=== PATIENT | male | born 1980 | race Caucasian/White ===

== ENCOUNTER → 2019-11-05 10:00 | Outpatient (BNVA) | payer MEDICARE, MEDICAID, SELFPAY | PROVIDERS: PCP Otolaryngology; Visit Provider Otolaryngology | DX: H93.92 Unspecified disorder of left ear (principal); H90.5 Unspecified sensorineural hearing loss; H71.92 Unspecified cholesteatoma, left ear; F17.220 Nicotine dependence, chewing tobacco, uncomplicated | CPT/HCPCS: 99024; 99214 ==

== ENCOUNTER → 2019-12-04 09:13 | Outpatient (BNVA) | payer MEDICARE, MEDICAID, SELFPAY | PROVIDERS: Visit Provider Otolaryngology | DX: H71.22 Cholesteatoma of mastoid, left ear (principal); R09.81 Nasal congestion; F17.220 Nicotine dependence, chewing tobacco, uncomplicated; Z90.89 Acquired absence of other organs | CPT/HCPCS: 17250; 99024; 99213 ==

== ENCOUNTER → 2019-12-10 10:05 | Outpatient (BNVA) | payer MEDICARE, MEDICAID, SELFPAY | PROVIDERS: Visit Provider Otolaryngology | DX: J01.90 Acute sinusitis, unspecified (principal); B96.89 Other specified bacterial agents as the cause of diseases classified elsewhere; R09.81 Nasal congestion; H71.92 Unspecified cholesteatoma, left ear; F17.220 Nicotine dependence, chewing tobacco, uncomplicated | CPT/HCPCS: 99024; 99214 ==

== ENCOUNTER 2020-05-11 07:50 | Day surgery (SDC) | payer MEDICARE, MEDICAID, SELFPAY ==
[2020-05-03 10:46] LABS: Basophils % 0.6 %; Eosinophils # 0.1 10^3/uL (0.0-0.8); Eosinophils % 1.5 %; Hematocrit 41.2 % (42.0-52.0); Hemoglobin 14.1 g/dL (11.7-16.6); Lymphocytes # 1.7 10^3/uL (0.8-4.8); Lymphocytes % 25.7 %; Mean Corpuscular HGB Conc 34.2 g/dL (30.0-36.0); Mean Corpuscular Hemoglobin 31.4 pg (28.0-34.0); Mean Corpuscular Volume 91.8 fL (80-94); Mean Platelet Volume 10.7 fL (7.4-10.4); Monocytes # 0.7 10^3/uL (0.2-0.9); Neutrophils % 61.9 %; Nucleated Red Blood Cells % 0 %; Platelet Count 177 10^3/cmm (130-400); Red Blood Count 4.49 10^6/uL (4.1-5.3); Red Cell Distribution Width 12.6 % (12.1-15.1); White Blood Count 6.5 10^3/uL (4.0-10.0)
[2020-05-03 11:16] LABS: Anion Gap 13.7 (5-19); Blood Urea Nitrogen 15 mg/dL (6-20); Carbon Dioxide 26 mmol/L (22-29); Chloride 104 mmol/L (98-107); Glucose 108 mg/dL (65-115); Osmolality Calculated 287 mOsm/kg (285-295); Potassium 3.7 mmol/L (3.5-5.1); Sodium 140 mmol/L (136-145)
--- NOTE | 2020-05-03 13:52 | ECG_ITS ---
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 Measurements Intervals [place] Rate: 58 P: 69 NC: 159 QRS: 91 QRSD: 93 T: 60 QT: 410 QTc: 403 Interpretive Statements SINUS BRADYCARDIA BORDERLINE RIGHT AXIS DEVIATION [QRS AXIS > 90] INCOMPLETE RIGHT BUNDLE BRANCH BLOCK [90+ ms QRS DURATION, TERMINAL R IN V1/V2, 40+ ms S IN I/aVL/V4/V5/V6] No previous ECG available for comparison Electronically Signed On 05-03-2020 21:45:48 CDT by Carmen Fernandez M.D. [email or web address]
[2020-05-10 11:06] VITALS: BMI 22.0
[2020-05-11] VITALS (7 sets, daily range): BP systolic 98–141; BP diastolic 60–101; PULSE 55–102; RESP 13–18; TEMP 36.2–36.6; O2SAT 98–100
[2020-05-11] MEDS: sodium chloride 0.9% 1,000 ML 30 ML IV (08:24)
--- NOTE | 2020-05-11 10:04 | ANES.PREANE2 ---
Pre-Anesthetic Assessment Pre-Anesthetic Assessment: Height/Weight: Height 1.85 m Weight 75.75 kg Temp Pulse Resp BP Pulse Ox 97.4 F L 55 L 18 140/100 100 05/11/20 08:10 05/11/20 08:10 05/11/20 08:10 05/11/20 08:10 05/11/20 08:10 Proposed Procedure: Operation Date: 05/11/20 08:55 Proposed Procedures p Baha Implants(Left) - Aquilino Hennessy MD Was Beta Lizzy taken within 24 hours: N/A Last intake: Intake Last Liquid Date 05/10/20 Last Liquid Time 19:30 Last Solid Date 05/10/20 Last Solid Time 19:30 Social: Social History: No alcohol and No tobacco Exam: Pre-Anes Outpt Exam: alert, oriented x 3, clear to auscultation bilaterally and regular rate & rhythm Airway: Submandibular: WNL Cervical ROM: WNL MP: 2 Dentition: Full History/ROS: No significant complaints Pulmonary: Pulmonary: None reported CV/HEM: CV/HEM: HTN : : None reported Hepatic: Hepatic: None reported GI: GI: None reported Metabolic: Metabolic: None reported Musc/skel: Musc/skel: None reported Neuropsych: Comments: Sensorineural Hearing Loss Anesthetic Plan: ASA status: 2 Anesthesia: General Meds/Allergies Current Medications: Current Medications Generic Name Dose Route Start Last Admin Trade Name Freq PRN Reason Stop Dose Admin Sodium Chloride 1,000 mls @ 30 ml s/hr 05/11/20 07:00 05/11/20 08:24 Sodium Chloride 0.9% IV 05/12/20 06:59 30 mls/hr .Q24H FER Administration PFSH Anesthesia PFSH: Medical History (Updated 12/10/19 @ 12:09 by Compa Clark MD) Acute bacterial sinusitis Chronic sinusitis Nasal congestion Surgical History History of ear surgery History of left mastoidectomy Social History Smoking and tobacco status: current every day smoker smokeless tobacco Smokeless tobacco user: chewing tobacco Quit status (tobacco): has tried quititng Alcohol intake: never Data Anesthesia CBC & Chem 7: 05/03/20 10:40 05/03/20 10:40 Cardiac Studies: No Data to Display
[2020-05-11] MEDS: clindamycin 600 MG/50 ML PREMIX 100 MG IV (10:07)
[2020-05-11] MEDS: neomycin-poly-bacitracin oint 28 gm 1 APPLIC TOPICAL (11:10)
--- NOTE | 2020-05-11 11:31 | P.OP_ITS ---
Operative Report Date of procedure: May 11, 2020 Pre-op Diagnosis: Severe mixed hearing loss, left ear Post-op diagnosis: same Post-op Findings: Well healed post surgical changes of the left ear c/w prior mastoidectomy Procedure Done: Left ear Bone Anchored Hearing Aid implant placement Implants: Left Bone Anchored Hearing Aid Implant Specimens removed/disposition: None Pathology: none sent Surgeon: Aquilino Hennessy Vice President [employer]: Carolyn Krueger Anesthesia: General Estimated blood loss (mL): 5 IV fluids (mL): 900 Complications: None Condition: stable Disposition: PACU Brief History: 40 yo wm with a h/o severe mixed hearing loss, left ear who desires surgical therapy. Procedure: The patient was identified in the preoperative holding area and was taken to the operating where he was placed on the operating table in the supine position. Anesthesia was obtained with general endotracheal anesthesia and the table was then turned 180 degrees. The left postauricular hair was shaved and the implant indicator/template was used to janeth the surgical site. The area was injected with local anesthesia and the patient was then prepped and draped in the usual sterile fashion. A 5 mm punch biopsy tool was used to remove a 5 mm circular plug of tissue down to the mastoid cortex at the previously marked implant site. Then, using the microscope and the raspatorium, the periosteum was elevated off the mastoid bone. At this point the tube template/limiter was placed into the incision onto the mastoid bone and the surgical drill was used to drill a 3 mm deep bar pilot hole. The fundus of the hole was inspected and there was adequate bone overlying the dura. At this point the widening drill bit was used to widen the hole in the mastoid cortex and then a 3 mm implant with a 12 mm abutment was placed in the mastoid hole at 40 Bhat/Cm. Once the implant was in place, the implant was covered with triple antibiotic ointment followed by a nonadhesive pad and healing cap. At this point the procedure was terminated and control of the patient was returned to anesthesia where he underwent an uneventful reversal of anesthesia and extubation. The patient was taken to the recovery room in stable condition there were no operative or anesthetic complications
== END 2020-05-11 12:19 | disposition home or self-care (01) ==
PROVIDERS: Visit Provider Specialist
PROC: (CPT 69710; principal; 2020-05-11 08:55)
DX: H90.72 Mixed conductive and sensorineural hearing loss, unilateral, left ear, with unrestricted hearing on the contralateral side (principal); I10 Essential (primary) hypertension; F17.210 Nicotine dependence, cigarettes, uncomplicated; I45.10 Unspecified right bundle-branch block
CPT/HCPCS: 69714; 12345; 36415; 80048; 85025; 93005; C1713; J2704; J3010; J3490; J7030

== ENCOUNTER 2020-07-02 23:28 | Emergency (ER) | payer MEDICARE, MEDICAID, SELFPAY ==
[2020-07-02 23:35] VITALS: PULSE 99; RESP 16; TEMP 36.6; O2SAT 94; BMI 22.0
--- NOTE | 2020-07-02 23:43 | XRR_ITS ---
PROCEDURE INFORMATION: Exam: XR Left Femur Exam date and time: 07/03/2020 12:20 AM Age: 40 years old Clinical indication: Injury or trauma; Injury history: Bull stepped on inner thigh; Initial encounter; Blunt trauma; Thigh or upper leg; Left TECHNIQUE: Imaging protocol: XR Left femur. Views: 2 views. COMPARISON: No relevant prior studies available. FINDINGS: Bones/joints: The bone density is appropriate. No acute fracture or dislocation. No bony destructive changes. Soft tissues: No foreign body. No gas in the soft tissues. There is soft tissue edema. Other findings: No periosteal reaction. No osteomyelitis. XR/XR femur LT min 2V* [id number] IMPRESSION: No acute bony abnormality.
[2020-07-02 23:50] VITALS: RESP 16
[2020-07-02] MEDS: HYDROmorphone 1 mg/mL INJ 1 mL IVP (23:50)
[2020-07-02] MEDS: ondansetron 2 mg/ML SDV 2 mL 4 MG IVP (23:50)
[2020-07-03 01:59] VITALS: RESP 18; O2SAT 99
[2020-07-03] MEDS: oxyCODONE-APAP 5-325 mg Tablet 3 TAB PO (01:59)
[2020-07-03 02:22] VITALS: BP 134/83; PULSE 92; RESP 18; O2SAT 97
--- NOTE | 2020-07-03 02:53 | W.ED.EXTPRO ---
HPI - Extremity Problem General: Chief complaint: Extremity Injury, Lower Stated complaint: leg injury post trauma Time Seen by Provider: 07/02/20 23:32 History of Present Illness: HPI Narrative: Healthy 38-year-old male who was stepped on by a bull a local rodeo event this evening. It was about an hour prior to arrival. He was stepped on one time, and the left distal thigh. No head injury. No loss of consciousness. He experienced intense pain to the left distal thigh. He was having pain with movement. He presents by EMS. MD Complaint: extremity pain and extremity swelling Onset (ago): minute(s) Pain Consistency: constant Location: left and lower extremity Quality: aching, crushing and constant Radiation: none Relieving factors: nothing Exacerbating factors: range of motion and weight bearing Associated symptoms: Deny chest pain, fever(s), myalgias, rash or short of breath Review of Systems Const: Denies: fever(s) Card: Denies: chest pain or palpitations Resp: Denies: dyspnea, productive cough or non-productive cough GI: Denies: abdominal pain, nausea or vomiting Skin/Breast: Denies: rash Neuro: Denies: headache(s), lack of coordination, dizziness, vertigo or confusion PFS ED PFSH: Medical History (Updated 07/03/20 @ 01:04 by Marques Conley DO) Acute bacterial sinusitis Chronic sinusitis Nasal congestion Surgical History History of ear surgery History of left mastoidectomy Social History Smoking and tobacco status: current every day smoker smokeless tobacco Smokeless tobacco user: chewing tobacco Quit status (tobacco): has tried quititng Alcohol intake: never Physical Exam Const: GENERAL APPEARANCE: well developed ORIENTATION/CONSCIOUSNESS: Yes oriented to person, Yes oriented to place and Yes oriented to time HENMT: COMMON NORMALS: normocephalic, external ears normal and Normal external nose present HEAD & SCALP: normocephalic FACE & SINUS: normal facial exam NOSE: Normal external nose present and No nasal discharge present EXTERNAL EAR: Yes external ears normal Eye: COMMON NORMALS: Equal, round and reactive pupils present, EOMs intact bilaterally and conjunctivae normal EYELID: eyelids normal CONJUNCTIVA: Yes conjunctivae normal PUPIL: Yes Equal, round and reactive pupils present Neck/C-Spine: COMMON NORMALS: full ROM GENERAL: No tracheal deviation CERVICAL SPINE: Yes normal cervical lordosis and No Cervical spine tenderness Chest: COMMONS NORMALS: normal inspection of the chest CHEST: No tenderness Resp: COMMON NORMALS: clear to auscultation bilaterally EFFORT & INSPECTION: No tachypneic, No respiratory distress, No retractions, No uses accessory muscles and No tracheal deviation AUSCULTATION: clear to auscultation bilaterally, no rhonchi, no wheezes and lung sounds not diminished Cardio: COMMON NORMALS: regular rate and regular rhythm RATE: regular rate RHYTHM: regular rhythm HEART SOUNDS: no murmurs PERIPHERAL PULSES: radial pulses present GI: INSPECTION: No abdominal distension AUSCULTATION: No Hyperactive bowel sounds present and No Hypoactive bowel sounds present PALPATION: No Guarding due to palpation present (GI) and No Rigid due to palpation PERCUSSION: no dullness to percussion and no tympanic to percussion : COMMON NORMALS: Yes no CVA tenderness BLADDER/KIDNEY EXAM: Yes no CVA tenderness Back/Pelvis: COMMON NORMALS: no CVA tenderness Extremity: NARRATIVE EXTREMITY EXAM: Exam of the left lower extremity reveals significant tenderness over the medial left distal thigh. There is no knee joint effusion. There is swelling in the distal thigh. There is no sign of compartment syndrome. Lower extremity movements are intact. Sensation and vascular is intact as well with good dorsalis pedis pulses as well as posterior tibial pulses Neuro: SENSORIUM/ORIENTATION: Yes oriented to person, Yes oriented to place and Yes oriented to time Psych: COMMON NORMALS: mental status grossly normal Skin: COMMON NORMALS: no rashes or lesions noted GENERAL SKIN EXAM: no rashes or lesions noted Course Vital Signs: Vital signs: Vital Signs Temperature 97.8 F 07/02/20 23:35 Pulse Rate 92 07/03/20 02:22 Respiratory Rate 18 07/03/20 02:22 Blood Pressure 134/83 07/03/20 02:22 Pulse Oximetry 97 07/03/20 02:22 MDM - Extremity (Nontraumatic) MDM Narrative: Medical decision making narrative: X-ray of the left femur is negative for any fracture. There is no knee joint effusion there does appear to be some soft tissue swelling around the distal thigh on x-ray. Will be placed in a knee immobilizer and crutches and asked to follow-up. Discharge Plan Discharge Patient Disposition: Home Clinical Impression: Contusion of left anterior thigh Qualifiers: Encounter type: initial encounter Qualified Code(s): S70.12XA - Contusion of left thigh, initial encounter Condition: Stable Prescriptions: [place] 7.5-325 mg tablet 1 tab PO Q6H PRN (Reason: pain) Qty: 14 RF: 0 No Action hydrocodone-acetaminophen 5-325 mg tablet 1 tab PO Q6H PRN (Reason: pain) Qty: 28 RF: 0 Discharge Orders: Discharge Order (Routine); Ordered 07/03/20 Ordered By: Marques Conley Discharge Diet: Usual diet Discharge Activity: Limit activity as instructed Patient Instructions: Contusion in Adults (ED) Activity Restrictions/Additional Instructions: Crutches for weightbearing, may begin to come out of crutches as discomfort improves. Come out of the knee immobilizer a couple of times a day for gentle stretching. Follow-up with your doctor within 1 week for repeat exam, and possible repeat x-ray. Ice frequently. Return for worsening pain despite treatment, exquisite pain with movement of the foot or toes, fever, other concerning symptoms. 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
== END 2020-07-03 02:25 | disposition home or self-care (01) ==
PROVIDERS: Emergency Provider Emergency Medicine
DX: S70.12XA Contusion of left thigh, initial encounter (principal); F17.220 Nicotine dependence, chewing tobacco, uncomplicated; W55.29XA Other contact with cow, initial encounter
CPT/HCPCS: 12345; 29530; 73552; 96374; 96375; 99282; 99283; E0114; J1170; J2405

== ENCOUNTER 2020-07-06 13:45 | Emergency (ER) | payer MEDICARE, MEDICAID, SELFPAY ==
[2020-07-06 14:06] VITALS: BP 134/87; PULSE 94; RESP 16; TEMP 36.6; O2SAT 96; BMI 22.0
--- NOTE | 2020-07-06 15:05 | USCV_ITS ---
Titus Jacob Age: 40 Gender: M : 1980 Exam Date: 07/06/2020 15:41 Ordering Phys: Ying Ochoa DO Technologist: Zay Leon [place] [facility] [place] Indication: RECENT INJURY WITH A BULL PROCEDURES: Venous duplex imaging was performed in only the left lower extremity. The following venous structures were evaluated: common femoral vein, profunda vein, proximal portion of the greater saphenous vein, superficial femoral vein, and the popliteal vein. In addition, the posterior tibial and peroneal trunk were evaluated. Serial compression, augmentation maneuvers, and spectral Doppler flow evaluation were performed. FINDINGS: Normal 2-D Doppler and augmentation and compressibility throughout the lower extremity venous structures. Additional imaging through the proximal calf veins also reveals no thrombus. Limited evaluation of the greater saphenous vein is patent with no thrombus.. CONCLUSIONS No evidence of left lower extremity DVT. Wayne Marin MD (Electronically Signed) Final Date: 06 July 2020 16:58 S
[2020-07-06 15:10] VITALS: BP 122/75; PULSE 73; RESP 15; O2SAT 99
--- NOTE | 2020-07-06 15:44 | ED_ITS ---
Documented by User: Ying Ochoa 07/06/20 15:44 HPI - Extremity Problem General: Chief complaint: Extremity Injury, Lower Stated complaint: knee pain/ urgent care thinks blood clot Time Seen by Provider: 07/06/20 15:03 [facility] ED PFSH: Medical History (Updated 07/06/20 @ 16:35 by BEATRIZ Suero) Acute bacterial sinusitis Chronic sinusitis Nasal congestion Surgical History History of ear surgery History of left mastoidectomy Social History Smoking and tobacco status: current every day smoker smokeless tobacco Smokeless tobacco user: chewing tobacco Quit status (tobacco): has tried quititng Alcohol intake: never Course Vital Signs: Vital signs: Vital Signs Temperature 97.8 F 07/06/20 14:06 Pulse Rate 73 07/06/20 16:42 Respiratory Rate 16 07/06/20 16:42 Blood Pressure 124/78 07/06/20 16:42 Pulse Oximetry 99 07/06/20 15:10 Discharge Plan Discharge Patient Disposition: Home Clinical Impression: Spontaneous ecchymosis, Muscle trauma Injury of knee, left Qualifiers: Encounter type: initial encounter Qualified Code(s): S89.92XA - Unspecified injury of left lower leg, initial encounter Condition: Stable Prescriptions: No Action hydrocodone-acetaminophen [[place]] 7.5-325 mg tablet 1 tab PO Q6H PRN (Reason: pain) Qty: 14 RF: 0 Discharge Orders: Discharge Order (Routine); Ordered 07/06/20 Ordered By: Anaid Calloway Discharge Diet: Usual diet Discharge Activity: Resume usual activity and Use walker/crutches as instructed Patient Instructions: Contusion in Adults (ED), Knee Pain (ED) Activity Restrictions/Additional Instructions: administrative services assistant has been contacted to assist with providing you follow-up appointment with primary care provider Keep the left lower extremity elevated Primary care provider will need to order MRI of the left knee for further evaluation as requested Continue with cool compresses to help with swelling and pain Discharge Date/Time: 07/06/20 16:43 Coding Level of Care Code ED [place] for Chg Fwd Exam Comprehensive Documented by User: BEATRIZ Suero 07/06/20 18:27 HPI - Extremity Problem General: Chief complaint: Extremity Injury, Lower Stated complaint: knee pain/ urgent care thinks blood clot Time Seen by Provider: 07/06/20 15:03 History of Present Illness: HPI Narrative: 40-year-old male patient presents to the emergency department with left lower extremity issue. He reports was involved in an accident involving a bull approximately 4 days ago. He reports went to urgent care due to bruising and pain of the left lower extremity that started yesterday, worsening today, advised to come to the ED for ultrasound for possible blood clot. He reports able to walk on the extremity. He reports wants MRI set up for his left knee. Previous left knee injury in the past. Previously evaluated in the emergency department, remains with crutches. Associated symptoms: Deny chest pain, fever(s) or rash Review of Systems General: Reports: 10 or more systems reviewed and unremarkable except in HPI and below Const: Denies: fever(s), chills or diaphoresis Eyes: Denies: blurry vision or eye redness ENMT: Denies: throat pain, dental pain or disequilibrium Card: Denies: chest pain, palpitations or irregular heart rhythm Resp: Denies: dyspnea, productive cough, non-productive cough or wheezing GI: Denies: abdominal pain, nausea or vomiting : Denies: dysuria Musc: Reports: limited range of motion (Left leg); Denies: neck pain or back pain Skin/Breast: Reports: changes in skin color (Bruising); Denies: rash or pruritus Neuro: Denies: headache(s), weakness in extremities or behavioral changes Ari/Lymph: Reports: easy bruising (Left lower extremity) [facility] ED PFS: Medical History (Updated 07/06/20 @ 16:35 by BEATRIZ Suero) Acute bacterial sinusitis Chronic sinusitis Nasal congestion Surgical History History of ear surgery History of left mastoidectomy Social History Smoking and tobacco status: current every day smoker smokeless tobacco Smokeless tobacco user: chewing tobacco Quit status (tobacco): has tried quititng Alcohol intake: never Physical Exam Const: COMMON NORMALS: no acute distress, patient oriented x3, healthy appearing and alert GENERAL APPEARANCE: cooperative, comfortable and well hydrated HENMT: COMMON NORMALS: normocephalic, Normal external nose present and moist oral mucous membranes HEAD & SCALP: normocephalic NOSE: Normal external nose present Eye: COMMON NORMALS: Equal, round and reactive pupils present and EOMs intact bilaterally GENERAL EYE: appearance normal, both eyes and all related structures PUPIL: Yes Equal, round and reactive pupils present Neck/C-Spine: COMMON NORMALS: full ROM and no lymphadenopathy GENERAL: Yes normal visual inspection and Yes trachea midline CERVICAL SPINE: Yes cervical ROM normal Lymph: LYMPHATIC: no lymphadenopathy noted Chest: COMMONS NORMALS: normal inspection of the chest Resp: COMMON NORMALS: normal respiratory effort and clear to auscultation bilaterally AUSCULTATION: clear to auscultation bilaterally Cardio: COMMON NORMALS: regular rhythm, S1 normal heart sound present, S2 normal heart sound present and Peripheral pulses 2+ throughout RHYTHM: regular rhythm HEART SOUNDS: S1 normal heart sound present and S2 normal heart sound present PERIPHERAL PULSES: Peripheral pulses 2+ throughout GI: COMMON NORMALS: Soft to palpation and non-tender INSPECTION: Yes normal to inspection PALPATION: Yes Soft to palpation : COMMON NORMALS: Yes no CVA tenderness BLADDER/KIDNEY EXAM: Yes no CVA tenderness Back/Pelvis: COMMON NORMALS: no CVA tenderness and thoracic and lumbar spine normal to inspection Extremity: GENERAL: Yes normal exam except as noted OTHER: Ecchymosis noted, purple discoloration from the left medial groin to the left lower calf. Appears a spontaneous ecchymosis, soft tissue tenderness present Neuro: COMMON NORMALS: patient oriented x3 and no focal motor deficits SENSORIUM/ORIENTATION: Yes alert Psych: COMMON NORMALS: mental status grossly normal, Normal thought process present and cooperative ACTIVITY/MOTOR BEHAVIOR: Yes appropriate eye contact THOUGHT PROCESS: Normal thought process present Skin: COMMON NORMALS: no rashes or lesions noted and turgor normal GENERAL SKIN EXAM: no rashes or lesions noted and turgor normal Course Vital Signs: Vital signs: Vital Signs Temperature 97.8 F 07/06/20 14:06 Pulse Rate 73 07/06/20 16:42 Respiratory Rate 16 07/06/20 16:42 Blood Pressure 124/78 07/06/20 16:42 Pulse Oximetry 99 07/06/20 15:10 MDM - Extremity (Nontraumatic) Imaging Data^: US Vascular: Radiologist's impression: Normal 2D Doppler and augmentation and compressibility throughout the lower extremity venous structures. Additional imaging through the proximal calf veins also reveals no thrombus. Limited evaluation of the greater saphenous vein is patent with no thrombus Discharge Plan Discharge Patient Disposition: Home Clinical Impression: Spontaneous ecchymosis, Muscle trauma Injury of knee, left Qualifiers: Encounter type: initial encounter Qualified Code(s): S89.92XA - Unspecified injury of left lower leg, initial encounter Condition: Stable Prescriptions: No Action hydrocodone-acetaminophen [[place]] 7.5-325 mg tablet 1 tab PO Q6H PRN (Reason: pain) Qty: 14 RF: 0 Discharge Orders: Discharge Order (Routine); Ordered 07/06/20 Ordered By: Anaid Calloway Discharge Diet: Usual diet Discharge Activity: Resume usual activity and Use walker/crutches as instructed Patient Instructions: Contusion in Adults (ED), Knee Pain (ED) Activity Restrictions/Additional Instructions: administrative services assistant has been contacted to assist with providing you follow-up appointment with primary care provider Keep the left lower extremity elevated Primary care provider will need to order MRI of the left knee for further evaluation as requested Continue with cool compresses to help with swelling and pain Discharge Date/Time: 07/06/20 16:43 Coding Level of Care Code ED [place] for Chg Fwd Exam Comprehensive
[2020-07-06 16:41] VITALS: BP 124/78; PULSE 73; RESP 16
[2020-07-06 16:42] VITALS: BP 124/78; PULSE 73; RESP 16
--- NOTE | 2020-07-07 12:17 | DCPLANNER ---
restaurant manager had message to speak with patient about getting a primary care physician. restaurant manager called phone number [phone], unable to speak with patient at this time, a voicemail was left for patient to return case work aide phone call.
== END 2020-07-06 16:43 | disposition home or self-care (01) ==
PROVIDERS: Emergency Provider Nurse Practitioner Family
DX: R23.3 Spontaneous ecchymoses (principal); S86.902A Unspecified injury of unspecified muscle(s) and tendon(s) at lower leg level, left leg, initial encounter; F17.220 Nicotine dependence, chewing tobacco, uncomplicated; X58.XXXA Exposure to other specified factors, initial encounter
CPT/HCPCS: 12345; 93971; 99281; 99282

== ENCOUNTER 2020-07-09 15:09 | Outpatient (CLI) | payer MEDICARE, MEDICAID, SELFPAY ==
--- NOTE | 2020-07-09 15:33 | MR_ITS ---
WS: [id number] MRI LEFT KNEE HISTORY: Injury to Left Knee COMPARISON: None available. Anterior cruciate ligament: Intact. Posterior cruciate ligament: Intact. Medial collateral ligament: Intact. Posterior lateral corner structures: Intact. Medial menisci: Intact. Normal signal, size and shape. Lateral meniscus: Intact. Normal signal, size and shape. Extensor mechanism: There is a small amount of fluid in the distal quadriceps tendon sheath but no fu ll-thickness tear or enlargement. Patellar tendon is normal. Fluid and soft tissue: No significant suprapatellar effusion. There is a large amount of soft tissue edema around the knee. Greatest amount of edema is within medial aspect of the knee. There is signifi cant contusion injury and edema involving the distal vastus medialis muscle. There is additional incr eased T2 signal surrounding the vastus lateralis and the biceps femoris at the level of the distal fe mur. No Gordon's cyst. Osseous and articular structures: Patellofemoral compartment: Normal. Medial compartment: Normal. Lateral compartment: Normal. MR/MR knee LT wo con* [id number] IMPRESSION: 1. No fracture or ligament/tendon tear is identified. 2. There is a large amount of soft tissue and muscle injury around the knee. M ost significant changes are within the vastus medialis and vastus lateralis and the biceps femoris. Otherwise extensive soft tissue edema throughout the subcu taneous tissues.
== END 2020-07-09 15:10 | disposition home or self-care (01) ==
LOC: RADWPI 15:15
PROVIDERS: PCP Family Medicine Adult Medicine; Visit Provider Family Medicine Adult Medicine
DX: S89.92XA Unspecified injury of left lower leg, initial encounter (principal); X58.XXXA Exposure to other specified factors, initial encounter; R60.0 Localized edema
CPT/HCPCS: 73721

== ENCOUNTER 2020-08-18 10:28 | Inpatient (IN) | payer MEDICARE, MEDICAID, SELFPAY ==
[2020-08-18 10:31] VITALS: BP 132/97; PULSE 92; RESP 16; TEMP 37; O2SAT 95; BMI 20.7
--- NOTE | 2020-08-18 10:52 | ED_ITS ---
HPI - Psych General: Chief Complaint: Psychiatric Symptoms Stated Complaint: SI Time Seen by Provider: 08/18/20 10:34 History of Present Illness: HPI Narrative: 40-year-old male patient presents to the emergency department via EMS due to verbalization suicidal verbalization. Patient reports he has been in a 3-year relationship with his significant other, recent break-up has caused feelings of depression. He reports recent court date due to accusations of something he did not do. He reports charges were dropped. Upon exam, he denies suicidal homicidal ideation plans or thoughts. He reports feels better now that he has had someone talk to. Reports does not wish to stay as an inpatient. Denies having guns in the home. He has history of previous admission at age 14 at [facility] due to depression. Reports previous suicide attempts at age 14. He reports history of medication/counseling but has not required treatment in years for depression. He states current situation has caused emotional upset and just wants somebody to talk to. complaint: suicidal ideation and feels depressed Onset (ago): week(s) (2) Duration: intermittent History of same: Yes Relieving factors: none Exacerbating factors: none Context: significant life stressor Associated psychiatric symptoms: depression and suicidal ideation Associated symptoms: Reports no associated symptoms and depression Treatments prior to arrival: none Details of plan: Denies plan Review of Systems General: Reports: 10 or more systems reviewed and unremarkable except in HPI and below Const: Denies: fever(s), chills or diaphoresis Eyes: Denies: blurry vision or eye redness ENMT: Denies: throat pain, dental pain or disequilibrium Card: Denies: chest pain, palpitations or irregular heart rhythm Resp: Denies: dyspnea, productive cough, non-productive cough or wheezing GI: Denies: abdominal pain, nausea or vomiting : Denies: dysuria Musc: Denies: neck pain or back pain Skin/Breast: Denies: rash or pruritus Neuro: Denies: headache(s), weakness in extremities or behavioral changes Psych: Reports: anxiety and depression Ari/Lymph: Denies: easy bruising PFS ED PFSH: Medical History (Updated 07/14/20 @ 00:01 by ) Acute bacterial sinusitis Chronic sinusitis Nasal congestion Surgical History (Updated 07/07/20 @ 09:07 by Dano Ewing MD) History of ear surgery History of left mastoidectomy History of orthopedic surgery Lt Knee meniscus tear repair 2014 or 2015 Social History Smoking and tobacco status: current every day smoker smokeless tobacco Smokeless tobacco user: chewing tobacco Quit status (tobacco): has tried quititng Alcohol intake: never Physical Exam Const: COMMON NORMALS: no acute distress, patient oriented x3, healthy appearing and alert GENERAL APPEARANCE: cooperative, comfortable and well hydrated HENMT: COMMON NORMALS: normocephalic, Normal external nose present and moist oral mucous membranes HEAD & SCALP: normocephalic NOSE: Normal external nose present Eye: COMMON NORMALS: Equal, round and reactive pupils present and EOMs intact bilaterally GENERAL EYE: appearance normal, both eyes and all related structures PUPIL: Yes Equal, round and reactive pupils present Neck/C-Spine: COMMON NORMALS: full ROM and no lymphadenopathy GENERAL: Yes normal visual inspection and Yes trachea midline CERVICAL SPINE: Yes cervical ROM normal Lymph: LYMPHATIC: no lymphadenopathy noted Chest: COMMONS NORMALS: normal inspection of the chest Resp: COMMON NORMALS: normal respiratory effort and clear to auscultation bilaterally AUSCULTATION: clear to auscultation bilaterally Cardio: COMMON NORMALS: regular rhythm, S1 normal heart sound present and S2 normal heart sound present RHYTHM: regular rhythm HEART SOUNDS: S1 normal heart sound present and S2 normal heart sound present GI: COMMON NORMALS: Soft to palpation and non-tender INSPECTION: Yes normal to inspection PALPATION: Yes Soft to palpation : COMMON NORMALS: Yes no CVA tenderness BLADDER/KIDNEY EXAM: Yes no CVA tenderness Back/Pelvis: COMMON NORMALS: no CVA tenderness and thoracic and lumbar spine normal to inspection Extremity: COMMON NORMALS: normal to inspection and capillary refill normal Neuro: COMMON NORMALS: patient oriented x3 and no focal motor deficits SENSORIUM/ORIENTATION: Yes alert Psych: COMMON NORMALS: mental status grossly normal, Normal thought process present, cooperative, normal affect, speech normal, activity/motor behavior normal, denies hallucinations, denies homicidal ideation and denies suicidal ideation APPEARANCE: Yes grossly normal ATTITUDE: Yes calm ACTIVITY/MOTOR BEHAVIOR: Yes appropriate eye contact SPEECH: Yes normal speech THOUGHT PROCESS: Normal thought process present THOUGHT CONTENT: No Suicidality present, No Homicidality present and No Hallucination(s) present ATTENTION/CONCENTRATION: Yes attention grossly intact MEMORY/COGNITION: Yes memory grossly intact INSIGHT: Fair insight present (Psych) JUDGEMENT: Fair judgement present (Psych) Skin: COMMON NORMALS: no rashes or lesions noted and turgor normal GENERAL SKIN EXAM: no rashes or lesions noted and turgor normal MDM - Psych Lab Data: Labs: Lab Results 08/18/20 08/18/20 08/18/20 Range/Units 10:37 10:37 11:19 WBC 8.2 (4.0-10.0) 10^3/ uL RBC 5.38 H (4.1-5.3) 10^6/u L Hgb 16.8 H (11.7-16.6) g/dL Hct 50.0 (42.0-52.0) % MCV 92.9 (80-94) fL MCH 31.2 (28.0-34.0) pg MCHC 33.6 (30.0-36.0) g/dL RDW 12.6 (12.1-15.1) % Plt Count 266 (130-400) 10^3/c mm MPV 11.0 H (7.4-10.4) fL Neut % (Auto) 67.6 % Lymph % (Auto) 22.5 % Curry % (Auto) 8.3 % Eos % (Auto) 0.5 % Baso % (Auto) 0.7 % Neut # (Auto) 5.51 (1.8-7.7) 10^3/u L Lymph # (Auto) 1.8 (0.8-4.8) 10^3/u L Curry # (Auto) 0.7 (0.2-0.9) 10^3/u L Eos # (Auto) 0.0 (0.0-0.8) 10^3/u L Baso # (Auto) 0.1 (0.0-0.1) 10^3/u L Nucleated RBC % (a uto) 0 % Nucleated RBCs # 0.0 /100WBC Sodium (136-145) mmol/L Potassium (3.5-5.1) mmol/L Chloride (98-107) mmol/L Carbon Dioxide (22-29) mmol/L Anion Gap (5-19) BUN (6-20) mg/dL Creatinine (0.7-1.2) mg/dL GFR Calculation (90-130) mL/min Glucose (65-115) mg/dL Calculated Osmolal ity (285-295) mOsm/k g Calcium (8.5-10.5) mg/dL Total Bilirubin (0.15-1.2) mg/dL AST (0-40) U/L ALT (0-41) U/L Alkaline Phosphata se (40-130) IU/L Total Protein (6.6-8.7) g/dL Albumin (3.5-5.2) g/dL Globulin (1.3-4.6) g/dL Urine Color Straw (Yellow) Urine Appearance Clear (CLEAR) Urine pH 7 (5-7) Ur Specific Gravit y 1.005 (1.005-1.030) Urine Protein Neg (Negative) Urine Glucose (UA) Norm (Normal) Urine Ketones Negative (Negative) Urine Blood Neg (Negative) Urine Nitrate Negative (Negative) Urine Bilirubin Neg (Negative) Urine Urobilinogen Norm (Negative) mg/dL Ur Leukocyte Nunu ase Negative (Negative) Salicylates (3-10) mg/dL Urine Opiates Scre en Negative (Negative) ng/mL Acetaminophen (10-30) ug/mL Ur Barbiturates Sc reen Negative (Negative) ng/mL Ur Phencyclidine S crn Negative (Negative) ng/mL Ur Amphetamines Sc reen Negative (Negative) ng/mL U Benzodiazepines Scrn Negative (Negative) ng/mL Urine Cocaine Scre en Negative (Negative) ng/mL U Marijuana (THC) Screen Negative (Negative) ng/mL Ethyl Alcohol (0-10) mg/dL 08/18/ Range/Units 11:19 WBC (4.0-10.0) 10^3/ uL RBC (4.1-5.3) 10^6/u L Hgb (11.7-16.6) g/dL Hct (42.0-52.0) % MCV (80-94) fL MCH (28.0-34.0) pg MCHC (30.0-36.0) g/dL RDW (12.1-15.1) % Plt Count (130-400) 10^3/c mm MPV (7.4-10.4) fL Neut % (Auto) % Lymph % (Auto) % Curry % (Auto) % Eos % (Auto) % Baso % (Auto) % Neut # (Auto) (1.8-7.7) 10^3/u L Lymph # (Auto) (0.8-4.8) 10^3/u L Curry # (Auto) (0.2-0.9) 10^3/u L Eos # (Auto) (0.0-0.8) 10^3/u L Baso # (Auto) (0.0-0.1) 10^3/u L Nucleated RBC % (a uto) % Nucleated RBCs # /100WBC Sodium 139 (136-145) mmol/L Potassium 4.1 (3.5-5.1) mmol/L Chloride 102 (98-107) mmol/L Carbon Dioxide 26 (22-29) mmol/L Anion Gap 15.1 (5-19) BUN 8 (6-20) mg/dL Creatinine 0.7 (0.7-1.2) mg/dL GFR Calculation 123.7 (90-130) mL/min Glucose 116 H (65-115) mg/dL Calculated Osmolal ity 287 (285-295) mOsm/k g Calcium 9.5 (8.5-10.5) mg/dL Total Bilirubin 1.3 H (0.15-1.2) mg/dL AST 17 (0-40) U/L ALT 12 (0-41) U/L Alkaline Phosphata se 87 (40-130) IU/L Total Protein 7.4 (6.6-8.7) g/dL Albumin 4.9 (3.5-5.2) g/dL Globulin 2.5 (1.3-4.6) g/dL Urine Color (Yellow) Urine Appearance (CLEAR) Urine pH (5-7) Ur Specific Gravit y (1.005-1.030) Urine Protein (Negative) Urine Glucose (UA) (Normal) Urine Ketones (Negative) Urine Blood (Negative) Urine Nitrate (Negative) Urine Bilirubin (Negative) Urine Urobilinogen (Negative) mg/dL Ur Leukocyte Nunu ase (Negative) Salicylates < 0.3 L (3-10) mg/dL Urine Opiates Scre en (Negative) ng/mL Acetaminophen < 5.0 L (10-30) ug/mL Ur Barbiturates Sc reen (Negative) ng/mL Ur Phencyclidine S crn (Negative) ng/mL Ur Amphetamines Sc reen (Negative) ng/mL U Benzodiazepines Scrn (Negative) ng/mL Urine Cocaine Scre en (Negative) ng/mL U Marijuana (THC) Screen (Negative) ng/mL Ethyl Alcohol < 10 (0-10) mg/dL Discharge Plan Discharge Patient Disposition: Admitted As Inpatient Admit Provider: Dennis Salas Referrals: Dano Ewing MD [Primary Care Provider] - Discharge Date/Time: 08/18/20 13:20 Coding Level of Care Code ED Senior Credit Analyst for Chg Fwd Exam Comprehensive
[2020-08-18 11:13] LABS: Add Urine Microscopic? NO
[2020-08-18 11:16] LABS: Bilirubin Urine Neg (Negative); Blood Urine Neg (Negative); Glucose Urine UA Norm (Normal); Ketones Urine Negative (Negative); Leukocyte Esterase Urine Negative (Negative); Nitrate Urine Negative (Negative); Protein Urine Neg (Negative); Specific Gravity, Urine 1.005 (1.005-1.030); Urine Appearance Clear (CLEAR); Urine Color Straw (Yellow); Urobilinogen Urine Norm (Negative); pH Urine 7 (5-7)
[2020-08-18 11:23] LABS: Basophils # 0.1 10^3/uL (0.0-0.1); Basophils % 0.7 %; Eosinophils % 0.5 %; Hemoglobin 16.8 g/dL (11.7-16.6); Lymphocytes # 1.8 10^3/uL (0.8-4.8); Lymphocytes % 22.5 %; Mean Corpuscular HGB Conc 33.6 g/dL (30.0-36.0); Mean Corpuscular Hemoglobin 31.2 pg (28.0-34.0); Mean Corpuscular Volume 92.9 fL (80-94); Monocytes # 0.7 10^3/uL (0.2-0.9); Monocytes % 8.3 %; Neutrophils # 5.51 10^3/uL (1.8-7.7); Neutrophils % 67.6 %; Nucleated Red Blood Cells % 0 %; Platelet Count 266 10^3/cmm (130-400); Red Blood Count 5.38 10^6/uL (4.1-5.3); Red Cell Distribution Width 12.6 % (12.1-15.1); White Blood Count 8.2 10^3/uL (4.0-10.0)
[2020-08-18 11:24] LABS: Amphetamines Screen Urine Negative (Negative); Barbiturates Screen Urine Negative (Negative); Benzodiazepines Screen Urine Negative (Negative); Cocaine Screen Urine Negative (Negative); Opiate Screen Urine Negative (Negative); PCP Screen Urine Negative (Negative); THC Screen Urine Negative (Negative)
[2020-08-18 11:53] LABS: Alanine Aminotransferase 12 U/L (0-41); Albumin Level 4.9 g/dL (3.5-5.2); Alkaline Phosphatase 87 IU/L (40-130); Anion Gap 15.1 (5-19); Aspartate Amino Transferase 17 U/L (0-40); Blood Urea Nitrogen 8 mg/dL (6-20); Calcium 9.5 mg/dL (8.5-10.5); Carbon Dioxide 26 mmol/L (22-29); Chloride 102 mmol/L (98-107); Creatinine Clr Calc Pharmacy 148.6053; Globulin 2.5 g/dL (1.3-4.6); Glomerular Filtration Rate 123.7 mL/min (90-130); Glucose 116 mg/dL (65-115); Osmolality Calculated 287 mOsm/kg (285-295); Potassium 4.1 mmol/L (3.5-5.1); Sodium 139 mmol/L (136-145); Total Bilirubin 1.3 mg/dL (0.15-1.2); Total Protein 7.4 g/dL (6.6-8.7)
[2020-08-18 11:54] LABS: Acetaminophen < 5.0 ug/mL (10-30); Alcohol Level < 10 mg/dL (0-10); Salicylate < 0.3 mg/dL (3-10)
[2020-08-18 13:02] VITALS: BP 133/96; PULSE 70; RESP 20; O2SAT 97
[2020-08-18 13:45] VITALS: BP 124/94; PULSE 88; RESP 19; TEMP 36.4; O2SAT 100
[2020-08-18 14:00] VITALS: BP 120/80; PULSE 80; RESP 18; TEMP 36.4; O2SAT 99
[2020-08-18 20:51] VITALS: BP 121/83; PULSE 74; RESP 17; TEMP 36.7; O2SAT 99
[2020-08-19 06:00] VITALS: BP 127/76; PULSE 64; RESP 17; TEMP 37.1; O2SAT 98
--- NOTE | 2020-08-19 08:02 | P.HP_ITS ---
Providers/Chief Complaint Admitting Physician: Dennis Salas MD Primary Care Provider: Dano Ewing MD Chief Complaint: SI HPI NPU History of Present Illness Titus Jacob is a 40 year old male who presented to the emergency room with the following report: Chief Complaint: Psychiatric Symptoms Stated Complaint: SI Time Seen by Provider: 08/18/20 10:34 History of Present Illness: HPI Narrative: 40-year-old male patient presents to the emergency department via EMS due to verbalization suicidal verbalization. Patient reports he has been in a 3-year relationship with his significant other, recent break-up has caused feelings of depression. He reports recent court date due to accusations of something he did not do. He reports charges were dropped. Upon exam, he denies suicidal homicidal ideation plans or thoughts. He reports feels better now that he has had someone talk to. Reports does not wish to stay as an inpatient. Denies having guns in the home. He has history of previous admission at age 14 at [facility] due to depression. Reports previous suicide attempts at age 14. He reports history of medication/counseling but has not required treatment in years for depression. He states current situation has caused emotional upset and just wants somebody to talk to. MD complaint: suicidal ideation and feels depressed Onset (ago): week(s) (2) Duration: intermittent History of same: Yes Relieving factors: none Exacerbating factors: none Context: significant life stressor Associated psychiatric symptoms: depression and suicidal ideation Associated symptoms: Reports no associated symptoms and depression Treatments prior to arrival: none Details of plan: Denies plan. He was admitted to the neuropsychiatric unit for definitive treatment of those issues. He presents today reporting that he started having symptoms of ADHD wh en he was a kid. He reports significant depression when he was 14 or 15 as he took care of his mom and dad mom suffering from cancer and dad having open heart surgery and got overwhelmed. He reports he was on medication off and on. He reports he had been on medication for 2 or 3 years and then presents finding himself suffering from depression again. He reports that he is struggling between 2 relationships. He reports he just came out of a bad relationship but clearly is not really out of that relationship trying to figure out whether he is going to maintain that or moved to an alternative relationship. But he finds himself alone and may Or with low mood and recently having thoughts to hurt himself. He reports that he had a chance to really think about it. He is on 96 hour hold and reported openness to a trial of medication. We discussed the risks benefits and alternatives of initiating Wellbutrin and he understood and agreed to proceed as is documented in this note. Psychiatric history: This is a second inpatient hospitalization limited outpatient follow-up. Substance abuse history: He reports he chews about a half to one can a day, that he doesn't drink alcohol regularly, he denies marijuana or any other illicit drug. He is never been in rehabilitation and never had a DUI. Family history: He denies mental health, addiction or any suicide attempts or completions in the family. Developmental history: He denies any problems with his or delivery except for maybe the umbilical cord being wrapped around his neck, 9 to walk and talk him at his developmental milestones on time, and reports he did have some speech therapy and special education classes. Psychosocial history: He reports his parents were together when he was born and had 7 children raymond page. He is the third of those children. And 4 girls. He reports that his childhood was fine and there was no emotional, physical or sexual abuse. He reached the 10th grade in school and try to get his GED but was not effective. He endorses being a heterosexual in his longest relationship was about 3 years. He's been one time and once. He had 7 children for which her girls he has no relationship with any of them that's significant. Never been in the and denies any buddhist belief system. 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 He lives in a camper. Legal history: He's been in nursing home twice. The longest time was 6 months. Medical history: He's had back surgery with hardware. 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 Meds NPU Home Medications Medication Instructions Recorded Confirmed Last Taken Type hydrocodone-acetaminophen [[place]] 1 tab PO Q6H PRN #14 tab 07/03/20 08/18/20 07/10/20 09:00 Rx meloxicam 15 mg PO DAILY PRN 08/18/20 08/18/20 Unknown History Allergies Allergy/AdvReac Type Severity Reaction Status Date / Time acetaminophen Allergy Unknown ALGY-Hives Verified 08/18/20 10:36 [From Darvocet-N 100] chocolate flavor Allergy Unknown ALGY-Anaphy Verified 08/18/20 10:36 laxis Iodinated Contrast Media Allergy Unknown ALGY-Hives Verified 08/18/20 10:36 naproxen Allergy Unknown ADR-Agitate Verified 08/18/20 10:36 d Penicillins Allergy Unknown Unknown Verified 08/18/20 10:36 propoxyphene Allergy Unknown ALGY-Hives Verified 08/18/20 10:36 [From Darvocet-N 100] Sulfa (Sulfonamide Allergy Unknown ALGY-Anaphy Verified 08/18/20 10:36 Antibiotics) laxis diphenhydramine Allergy ADR-Agitate Verified 08/19/20 20:46 d PFSH NPU PFSH: Medical History (Updated 08/20/20 @ 06:46 by Dennis Salas MD) Acute bacterial sinusitis Chronic sinusitis Nasal congestion Surgical History (Updated 07/07/20 @ 09:07 by Dano Ewing MD) History of ear surgery History of left mastoidectomy History of orthopedic surgery Lt Knee meniscus tear repair 2013 or 2014 Social History Smoking and tobacco status: current every day smoker smokeless tobacco Smokeless tobacco user: chewing tobacco Quit status (tobacco): has tried quititng Alcohol intake: never Mental Status Exam MSE Comments: This is a well-nourished well-developed white male with adequate progress, grooming and contact. No abnormal movements. Cooperative with exam in no acute distress. Speech was slightly decreased rate and volume. Mood described as depressed, affect congruent. Thought process organized. Thought content: Patient denied suicidal or homicidal ideation, there were no delusions reported or noted, he denied any auditory or visual hallucinations. Attention and concentration were intact and memory was unreliable but none were formally tested. He was alert and oriented ?3. Insight and judgment were fair and impulse control was limited. Vitals/I&O/Wt Last Vital Signs Temp 98.1 F 08/18/20 20:51 Pulse 74 08/18/20 20:51 Resp 17 08/18/20 20:51 BP 121/83 08/18/20 20:51 Pulse Ox 99 08/18/20 20:51 Weight last 48 hrs Weight 71.214 kg Data NPU : 08/18/20 11:19 08/18/20 11:19 A&P Assessment and plan (1) Acute bacterial sinusitis: Status: Acute (2) Nasal congestion: Status: Acute (3) History of left mastoidectomy: Status: Acute (4) Cholesteatoma of left ear: Status: Acute (5) Sensorineural hearing loss: Status: Acute (6) Suicidal ideation: Status: Acute (7) Major depressive disorder: Status: Acute Additional A&P Information This is a 40-year-old white male with depression and recent suicidal thoughts with adjustment to recent issues who presents open to a medication trial. 1. Continue current medications except start Wellbutrin XL 150 mg by mouth every morning. 2. Continue 15 minute checks for safety. 3. Encourage individual, group and milieu therapy. 4. Work with treatment team for outpatient services. Involuntary Hold Information 96 Hour Hold: 96 Hour Involuntary Admission: Yes 96 Hour Hold Ending Date: 08/24/20 96 Hour Hold Ending Time: 11:00 Attestations NPU Medical Necessity Statement*: Inpatient hospitalization is medically necessary and the clinically appropriate intervention at this time. We will monitor medications and make changes as indicated. He will be in the hospital for over 2 midnights. Likely length of stay 1-3 days. Coding Level of Care Code Acute Cardiac Nurse Specialist for Carley De Diagnoses Acute bacterial sinusitis J01.90; B96.89 Nasal congestion R09.81 History of left mastoidectomy Z90.89 Cholesteatoma of left ear H71.92 Sensorineural hearing loss H90.5 Suicidal ideation R45.851 Major depressive disorder F32.9
[2020-08-19] MEDS: nicotine 21 mg Patch 1 PATCH TRANSDERMA (10:16)
[2020-08-19 13:46] VITALS: BP 129/83; PULSE 72; RESP 18; TEMP 36.9; O2SAT 98
[2020-08-19 20:11] VITALS: BP 117/86; PULSE 100; RESP 17; TEMP 36.8; O2SAT 97
[2020-08-19] MEDS: trazodone 50 mg Tablet PO (21:33)
[2020-08-19] MEDS: hyDROXYzine 25 mg Capsule 50 MG PO (21:33)
[2020-08-19] MEDS: nicotine 2 mg Gum BUCCAL (21:35)
--- NOTE | 2020-08-20 01:49 | PC.NURSE ---
[facility] PT REPORTED ADVERSE REACTION TO BENEDRYL. REMOVED FROM RECORD. STATED THIS DRUG MAKES HIM ANGRY AND MEAN.
[2020-08-20 06:00] VITALS: BP 109/68; PULSE 68; RESP 17; TEMP 36.3; O2SAT 97
[2020-08-20] MEDS: buPROPion XL (24 HR) 150 mg Tablet PO (08:24)
[2020-08-20] MEDS: nicotine 21 mg Patch 1 PATCH TRANSDERMA (10:36)
[2020-08-20 11:24] VITALS: BP 109/68; PULSE 68; RESP 17; TEMP 36.3; O2SAT 97
--- NOTE | 2020-08-20 12:45 | P.DS_ITS ---
Diagnoses at Discharge Discharge Diagnosis (1) Acute bacterial sinusitis: Status: Resolved (2) Nasal congestion: Status: Resolved (3) History of left mastoidectomy: Status: Acute (4) Cholesteatoma of left ear: (5) Sensorineural hearing loss: Status: Acute (6) Suicidal ideation: Status: Resolved (7) Major depressive disorder: Status: Acute Reason for Visit Reason for Visit: SI Brief History: History of Present Illness Titus Jacob is a 40 year old male who presented to the emergency room with the following report: Chief Complaint: Psychiatric Symptoms Stated Complaint: SI Time Seen by Provider: 08/18/20 10:34 History of Present Illness: HPI Narrative: 40-year-old male patient presents to the emergency department via EMS due to verbalization suicidal verbalization. Patient reports he has been in a 3-year relationship with his significant other, recent break-up has caused feelings of depression. He reports recent court date due to accusations of something he did not do. He reports charges were dropped. Upon exam, he denies suicidal homicidal ideation plans or thoughts. He reports feels better now that he has had someone talk to. Reports does not wish to stay as an inpatient. Denies having guns in the home. He has history of previous admission at age 14 at [facility] due to depression. Reports previous suicide attempts at age 14. He reports history of medication/counseling but has not required treatment in years for depression. He states current situation has caused emotional upset and just wants somebody to talk to. MD complaint: suicidal ideation and feels depressed Onset (ago): week(s) (2) Duration: intermittent History of same: Yes Relieving factors: none Exacerbating factors: none Context: significant life stressor Associated psychiatric symptoms: depression and suicidal ideation Associated symptoms: Reports no associated symptoms and depression Treatments prior to arrival: none Details of plan: Denies plan. He was admitted to the neuropsychiatric unit for definitive treatment of those issues. He presents today reporting that he started having symptoms of ADHD when he was a kid. He reports significant depression when he was 14 or 15 as he took care of his mom and dad mom suffering from cancer and dad having open heart surgery and got overwhelmed. He reports he was on medication off and on. He reports he had been on medication for 2 or 3 years and then presents finding himself suffering from depression again. He reports that he is struggling between 2 relationships. He reports he just came out of a bad relationship but clearly is not really out of that relationship trying to figure out whether he is going to maintain that or moved to an alternative relationship. But he finds himself alone and may Or with low mood and recently having thoughts to hurt himself. He reports that he had a chance to really think about it. He is on 96 hour hold and reported openness to a trial of medication. We discussed the r isks benefits and alternatives of initiating Wellbutrin and he understood and agreed to proceed as is documented in this note. Psychiatric history: This is a second inpatient hospitalization limited outpatient follow-up. Substance abuse history: He reports he chews about a half to one can a day, that he doesn't drink alcohol regularly, he denies marijuana or any other illicit drug. He is never been in rehabilitation and never had a DUI. Family history: He denies mental health, addiction or any suicide attempts or completions in the family. Developmental history: He denies any problems with his or delivery except for maybe the umbilical cord being wrapped around his neck, 9 to walk and talk him at his developmental milestones on time, and reports he did have some speech therapy and special education classes. Psychosocial history: He reports his parents were together when he was born and had 7 children together. He is the third of those children. And 4 girls. He reports that his childhood was fine and there was no emotional, physical or sexual abuse. He reached the 10th grade in school and try to get his GED but was not effective. He endorses being a heterosexual in his longest relationship was about 3 years. He's been one time and once. He had 7 children for which her girls he has no relationship with any of them that's significant. Never been in the and denies any muslim belief system. 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 He lives in a camper. Legal history: He's been in nursing home twice. The longest time was 6 months. Medical history: He's had back surgery with hardware. 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 Hospital Course Hospital Course Titus presented to the emergency room endorsing feeling suicidal, having depression and struggling with some relationship challenges that had felt overwhelming. He was admitted to the neuropsychiatric unit for definitive treatment of those issues. On the unit he quickly acclimated to the individual, group and milieu therapies provided. He was started on Wellbutrin XL and he tolerated well and showed marked improvement. He was able to contract for safety and was future oriented and wanting to get back to his normal life. During hospitalization he had routine laboratory studies which were within normal limits except for few outliers. Additionally he had a general medical evaluation which was also within normal limits and revealed no new acute processes. Discharge Summary At the time of discharge, he was absent lethality or psychosis. His mood and anxiety were improved and well managed. He endorsed a plan to avoid all drugs of abuse and follow-up with the outpatient recommendations of the treatment team. He was evaluated and deemed to be absent credible lethality and had achieved a maximum benefit from an inpatient hospitalization, so he was discharged. Involuntary Hold Information 96 Hour Hold: 96 Hour Involuntary Admission: Yes 96 Hour Hold Ending Date: 08/24/20 96 Hour Hold Ending Time: 11:00 Mental Status Exam MSE Comments: This is a well-nourished well-developed white male with adequate dress, grooming and eye contact. No abnormal movements. Cooperative with exam in no acute distress. Speech was more normal rate and volume. Mood described as a lot better, affect congruent. Thought process organized. Thought content: Patient denied suicidal or homicidal ideation, there were no delusions reported or noted, he denied any auditory or visual hallucinations. Attention and concentration were intact and memory was reliable but none were formally tested. He was alert and oriented ?3. Insight and judgment were fair and impulse control was limited, but improving. Discharge Data Vitals: Last Vital Signs Temp 97.4 F L 08/20/20 11:24 Pulse 68 08/20/20 11:24 Resp 17 08/20/20 11:24 BP 109/68 08/20/20 11:24 Pulse Ox 97 08/20/20 11:24 Discharge Plan Discharge Patient Disposition: Home Condition: Stable Prescriptions: New bupropion HCl 150 mg Tablet Extended Release 24 Hr 150 mg PO DAILY 30 Days Qty: 30 RF: 1 Discharge Orders: Discharge Order (Routine); Ordered 08/20/20 Ordered By: Dennis Salas Referrals: [facility] [Other] - 1-3 days (If you want to go to [facility], call about getting appointment for follow-up as soon as possible. Your intake will be on the phone. You can receive psychiatric medication management and individual therapy with them. ) [facility] [Outside] - 1-3 days (If you prefer to come to [facility], call or stop by and request an initial intake. ) Dano Ewing MD [Primary Care Provider] - Discharge Diet: Regular Discharge Activity: Resume usual activity Discharge Date/Time: 08/20/20 14:40 Discharge Attestations NPU Time Spent in Discharge Care*: less than 30 min Specific Discharge Activities: Specific discharge activities: educating patient, discussing with case resource manager/social workers/dc planners, documenting/other paperwork and evaluating patient/reviewing data Coding Level of Care Code Acute Respiratory Care Assistant for g Fwd Diagnoses Acute bacterial sinusitis J01.90; B96.89 Nasal congestion R09.81 History of left mastoidectomy Z90.89 Cholesteatoma of left ear H71.92 Sensorineural hearing loss H90.5 Suicidal ideation R45.851 Major depressive disorder F32.9
[2020-08-20 14:00] VITALS: BP 116/73; PULSE 90; RESP 18; TEMP 36.8; O2SAT 98
--- NOTE | 2020-08-20 15:43 | PC.RESP ---
SMOKING CESSATION INFORMATION SENT TO PATIENT.
== END 2020-08-20 14:40 | disposition home or self-care (01) | DRG 881 ==
LOC: ER 13:00 → NP 13:02
PROVIDERS: Nurse Practitioner Family; Admitting Provider Psychiatry & Neurology Psychiatry; Emergency Provider Family Medicine; PCP Family Medicine Adult Medicine; Visit Provider Psychiatry & Neurology Psychiatry
DX: F32.9 Major depressive disorder, single episode, unspecified (principal); R45.851 Suicidal ideations; H90.5 Unspecified sensorineural hearing loss; H71.92 Unspecified cholesteatoma, left ear; J01.80 Other acute sinusitis
CPT/HCPCS: 12345; 80053; 80306; 80307; 81003; 85025; 99284